=== PATIENT | male | born 1950 | race Caucasian/White ===

== ENCOUNTER 2019-04-28 08:37 | Emergency (ER) | payer MEDICARE, BC ==
[~2019-04-28] VITALS: Ht 185.4 cm; Wt 118.2 kg
[~2019-04-28 08:37] MED LIST: AMLO2.5T4 PO; CITA20TA28 PO; FLEC50TA PO; HYDR-4353 PO; METF500T PO; PANT40TA4 PO; PIOG45TA19 PO; RIVA20TA PO; TEMA15CA5 PO
[2019-04-28 09:16] LABS: BASOPHILS # (AUTO) 0.1 X10'3 (0-0.2); BASOPHILS % (AUTO) 0.8 % (0-1); EOSINOPHILS # (AUTO) 0.3 X10'3 (0-0.9); EOSINOPHILS % (AUTO) 2.8 % (0-6); HEMATOCRIT 44.8 % (42.0-52.0); HEMOGLOBIN 15.6 g/dl (14.0-17.9); LYMPHOCYTES # (AUTO) 2.8 X10'3 (1.1-4.8); LYMPHOCYTES % (AUTO) 27.6 % (21-51); MEAN CORPUSCULAR HEMOGLOBIN 29.8 PG (27.0-31.0); MEAN CORPUSCULAR HGB CONC 34.9 g/dL (33.0-36.5); MEAN CORPUSCULAR VOLUME 85.5 FL (78-98); MEAN PLATELET VOLUME 8.6 FL (7.4-10.4); MONOCYTES # (AUTO) 0.7 X10'3 (0-0.9); MONOCYTES % (AUTO) 7.3 % (2-12); NEUTROPHILS # (AUTO) 6.2 X10'3 (1.8-7.7); NEUTROPHILS % (AUTO) 61.5 % (42-75); PLATELET COUNT 219 X10'3 (140-440); RED BLOOD COUNT 5.23 X10'6 (4.70-6.10); RED CELL DISTRIBUTION WIDTH 13.5 % (11.5-14.5); WHITE BLOOD COUNT 10.1 X10'3 (4.5-11.0)
[2019-04-28 09:22] LABS: ALANINE AMINOTRANSFERASE 26 U/L (12-78); ALBUMIN 4.1 G/DL (3.4-5.0); ALBUMIN/GLOBULIN RATIO 1.1 (1.1-1.5); ALKALINE PHOSPHATASE 121 IU/L (46-116); ANION GAP 13 (8-16); BILIRUBIN,TOTAL 1.8 MG/DL (0.1-1.0); BLOOD UREA NITROGEN 22 MG/DL (7-18); BUN/CREATININE RATIO 13.8 (5.4-32.0); CALCIUM 9.8 MG/DL (8.5-10.1); CHLORIDE 96 MMOL/L (99-107); CREATININE 1.59 MG/DL (0.60-1.10); GLUCOSE 197 MG/DL (70-104); POTASSIUM 4.1 MMOL/L (3.5-5.1); SODIUM 131 MMOL/L (135-145); TOTAL CARBON DIOXIDE 22.2 MMOL/L (24-32); TOTAL PROTEIN 7.9 G/DL (6.4-8.2); eGFR 44 ML/MIN
[2019-04-28 09:25] LABS: PARTIAL THROMBOPLASTIN TIME 38 SECONDS (22-32)
[2019-04-28] MEDS: aspirin 81mg tab.chew PO ONE (09:41)
--- NOTE | 2019-04-28 09:41 | NUR ---
vascular in room ultrasounding left leg
--- NOTE | 2019-04-28 09:43 | NUR ---
PATIENT DENIES CHEST PAIN AT THIS TIME
[2019-04-28] MEDS: furosemide 10 MG/1 ML 10ml inj IV ONE (09:53)
[2019-04-28] MEDS: LORazepam 2 mg/ml vial IV ONE (10:38)
--- NOTE | 2019-04-28 10:51 | NUR ---
PER JULIANNE MILLER: AMBULATE WITHOUT OXYGEN PATIENT AMBULATED ABOUT 300 FEET RR EVEN UNLABORED SPO2 ABOVE 97% DURING WALK, PATIENT STATED THAT HE IS ALWAYS SOB AND HIS SOB WAS SLIGHTLY INCREASED DURING HIS WALK BUT NO ACCESORY MUSCLE USE, UNLABORED: HIGHEST RR 18
--- NOTE | 2019-04-28 10:58 | NUR ---
PATIENT DENIED CHEST PAIN DURING AMBUALTION: JULIANNE BORJA
[2019-04-28] MEDS: normal saline 1000ML IV soln IVB ONE ×2 (11:29→12:08)
--- NOTE | 2019-04-28 12:09 | NUR ---
PATIENT MAY HAVE BEEN DOUBLE DOSING HIS METFORMIN. HE STATED THAT HE RESUMED HIS METFORMIN AND HIS GLUCOPHAGE. JULIANNE MILLER DISCUSSED HIS LACTIC ACIDOSIS AND THAT THE PATIENT MUST STOP HIS METFORMIN
[2019-04-28 12:11] LABS: ASPARTATE AMINO TRANSFERASE 17 U/L (10-37)
[2019-04-28 13:10] VITALS: BP 131/64
[2019-04-28 13:41] LABS: URINE AMPHETAMINE SCREEN NEGATIVE (Neg); URINE BARBITUATE SCREEN NEGATIVE (Neg); URINE BENZODIAZEPINES SCREEN POSITIVE (Neg); URINE CANNABINOID SCREEN POSITIVE (Neg); URINE COCAINE SCREEN POSITIVE (Neg); URINE METHADONE SCREEN NEGATIVE (Neg); URINE OPIATE SCREEN POSITIVE (Neg); URINE PHENCYCLIDINE SCREEN NEGATIVE (Neg)
== END 2019-04-28 13:57 | disposition home or self-care (01) ==
LOC: ER 08:38
DX: E87.2 Acidosis (principal); T38.3X5A Adverse effect of insulin and oral hypoglycemic [antidiabetic] drugs, initial encounter; E86.0 Dehydration; E11.22 Type 2 diabetes mellitus with diabetic chronic kidney disease; N18.9 Chronic kidney disease, unspecified; I50.9 Heart failure, unspecified; F19.10 Other psychoactive substance abuse, uncomplicated; L53.8 Other specified erythematous conditions; I48.91 Unspecified atrial fibrillation; E11.9 Type 2 diabetes mellitus without complications; Z95.1 Presence of aortocoronary bypass graft; Z79.899 Other long term (current) drug therapy; Y92.9 Unspecified place or not applicable
CPT/HCPCS: 36415; 71045; 80053; 80305; 83605; 83880; 84484; 85025; 85379; 85610; 85730; 93005; 93971; 96361; 96374; 96375; 99284; J1940; J2060; J7030

== ENCOUNTER 2021-01-06 17:53 | Emergency (ER) | payer MEDICARE, BC ==
[~2021-01-06] VITALS: Ht 185.4 cm; Wt 122.7 kg
[~2021-01-06 17:53] MED LIST changes: +APIX5TAB3 PO; +ATOR40TA72 PO; -PANT40TA4 PO; +PANT40TA54 PO; -PIOG45TA19 PO; -RIVA20TA PO
[2021-01-06] MEDS ORDERED: normal saline 1000ML IV soln IV ONE (18:05)
[2021-01-06 18:44] LABS: BASOPHILS # (AUTO) 0.1 X10'3 (0-0.2); BASOPHILS % (AUTO) 1.3 % (0-1); EOSINOPHILS # (AUTO) 0.3 X10'3 (0-0.9); EOSINOPHILS % (AUTO) 5.1 % (0-6); HEMATOCRIT 39.7 % (42.0-52.0); HEMOGLOBIN 13.2 g/dl (14.0-17.9); LYMPHOCYTES # (AUTO) 1.8 X10'3 (1.1-4.8); LYMPHOCYTES % (AUTO) 30.2 % (21-51); MEAN CORPUSCULAR HEMOGLOBIN 27.9 PG (27.0-31.0); MEAN CORPUSCULAR HGB CONC 33.2 g/dL (33.0-36.5); MEAN CORPUSCULAR VOLUME 84.1 FL (78-98); MEAN PLATELET VOLUME 7.3 FL (7.4-10.4); MONOCYTES # (AUTO) 0.4 X10'3 (0-0.9); MONOCYTES % (AUTO) 6.2 % (2-12); NEUTROPHILS # (AUTO) 3.5 X10'3 (1.8-7.7); NEUTROPHILS % (AUTO) 57.2 % (42-75); PLATELET COUNT 263 X10'3 (140-440); RED BLOOD COUNT 4.72 X10'6 (4.70-6.10); RED CELL DISTRIBUTION WIDTH 16.5 % (11.5-14.5); WHITE BLOOD COUNT 6.1 X10'3 (4.5-11.0)
--- NOTE | 2021-01-06 18:54 | NUR ---
Pt resting in bed recieving IV fluids. No complaints at this time. Vitals taken
[2021-01-06 18:55] LABS: ALANINE AMINOTRANSFERASE 19 U/L (12-78); ALBUMIN 3.9 G/DL (3.4-5.0); ALBUMIN/GLOBULIN RATIO 0.9 (1.1-1.5); ALKALINE PHOSPHATASE 149 IU/L (46-116); ANION GAP 10 (8-16); ASPARTATE AMINO TRANSFERASE 13 U/L (10-37); BILIRUBIN,TOTAL 0.5 MG/DL (0.1-1.0); BLOOD UREA NITROGEN 15 MG/DL (7-18); BUN/CREATININE RATIO 12.5 (5.4-32.0); CALCIUM 9.2 MG/DL (8.5-10.1); CHLORIDE 100 MMOL/L (99-107); GLUCOSE 254 MG/DL (70-104); LIPASE < 50 U/L (73-393); POTASSIUM 4.5 MMOL/L (3.5-5.1); SODIUM 136 MMOL/L (135-145); TOTAL PROTEIN 8.2 G/DL (6.4-8.2); eGFR 60 ML/MIN
[2021-01-06] MEDS ORDERED: lactulose 20gm/30ml cup PO ONE (19:10)
[2021-01-06] MEDS ORDERED: magnesium citrate 296ml oral solution PO ONE (19:10)
[2021-01-06] MEDS ORDERED: iohexol 300mg/ml 100ml inj. ONE (19:11)
[2021-01-06] MEDS ORDERED: POLY17PO10 PO (22:05)
[2021-01-06 22:23] LABS: CLARITY,URINE CLEAR (Clear); COLOR,URINE YELLOW (Yellow); GLUCOSE, URINE 250 mg/dl (Neg); KETONES,URINE NEGATIVE (Neg); LEUKOCYTE ESTERASE ,URINE NEGATIVE (Neg); NITRITES, URINE NEGATIVE (Neg); OCCULT BLOOD,URINE NEGATIVE (Neg); PH,URINE 5.5 (4.8-8.0); PROTEIN,URINE NEGATIVE (Neg)
[2021-01-06 22:28] LABS: UA COLLECTION TYPE CLN CATCH MIDSTREAM
--- NOTE | 2021-01-06 22:52 | NUR ---
Pt had two bowel movements after enema, states relief. BM was firm and pt states hard to pass
[2021-01-06 23:19] VITALS: BP 125/60
== END 2021-01-06 23:20 | disposition home or self-care (01) ==
LOC: ER 17:54
DX: K59.00 Constipation, unspecified (principal); K80.80 Other cholelithiasis without obstruction; R10.30 Lower abdominal pain, unspecified; R53.1 Weakness; I48.91 Unspecified atrial fibrillation; E11.9 Type 2 diabetes mellitus without complications; Z98.890 Other specified postprocedural states; Z79.899 Other long term (current) drug therapy
CPT/HCPCS: 36415; 74177; 80053; 81003; 83605; 83690; 84145; 85025; 87040; 87077; 99285; J7030; Q9967; 96360; 96361

== ENCOUNTER 2021-07-01 10:40 | Inpatient (IN) | payer MEDICARE, BC ==
[2021-07-01] VITALS (9 sets, daily range): BP systolic 143–172; BP diastolic 68–102
[~2021-07-01] VITALS: Ht 185.4 cm; Wt 127.3 kg
[2021-07-01 11:30] LABS: BASOPHILS % (AUTO) 0.6 % (0-1); EOSINOPHILS # (AUTO) 0.3 X10'3 (0-0.9); EOSINOPHILS % (AUTO) 4.9 % (0-6); HEMATOCRIT 37.5 % (42.0-52.0); HEMOGLOBIN 12.6 g/dl (14.0-17.9); LYMPHOCYTES # (AUTO) 1.7 X10'3 (1.1-4.8); MEAN CORPUSCULAR HEMOGLOBIN 29.5 PG (27.0-31.0); MEAN CORPUSCULAR HGB CONC 33.6 g/dL (33.0-36.5); MEAN CORPUSCULAR VOLUME 87.7 FL (78-98); MEAN PLATELET VOLUME 7.3 FL (7.4-10.4); MONOCYTES # (AUTO) 0.5 X10'3 (0-0.9); MONOCYTES % (AUTO) 8.1 % (2-12); NEUTROPHILS # (AUTO) 4.1 X10'3 (1.8-7.7); NEUTROPHILS % (AUTO) 61.4 % (42-75); PLATELET COUNT 204 X10'3 (140-440); RED BLOOD COUNT 4.27 X10'6 (4.70-6.10); RED CELL DISTRIBUTION WIDTH 15.4 % (11.5-14.5); WHITE BLOOD COUNT 6.6 X10'3 (4.5-11.0)
[2021-07-01 11:49] LABS: ALANINE AMINOTRANSFERASE 30 U/L (12-78); ALBUMIN 3.3 G/DL (3.4-5.0); ALBUMIN/GLOBULIN RATIO 1.1 (1.1-1.5); ALKALINE PHOSPHATASE 100 IU/L (46-116); ANION GAP 9 (8-16); ASPARTATE AMINO TRANSFERASE 19 U/L (10-37); BILIRUBIN,TOTAL 0.7 MG/DL (0.1-1.0); BLOOD UREA NITROGEN 13 MG/DL (7-18); BUN/CREATININE RATIO 11.5 (5.4-32.0); CALCIUM 8.4 MG/DL (8.5-10.1); CHLORIDE 103 MMOL/L (99-107); CREATININE 1.13 MG/DL (0.60-1.10); GLUCOSE 180 MG/DL (70-104); POTASSIUM 4.6 MMOL/L (3.5-5.1); SODIUM 138 MMOL/L (135-145); TOTAL CARBON DIOXIDE 26.2 MMOL/L (24-32); TOTAL PROTEIN 6.4 G/DL (6.4-8.2); eGFR 64 ML/MIN
[2021-07-01] MEDS ORDERED: magnesium 4gm in 100ml NS 100 ML IV PRN (11:50)
[2021-07-01] MEDS ORDERED: acetaminophen 325mg tablet PO PRN (11:50)
[2021-07-01] MEDS ORDERED: magnesium Cl slow-release 64mg tablet PO PRN (11:50)
[2021-07-01] MEDS ORDERED: mag hydrox/Alum hydrox/simeth 30ml oral suspension PO PRN (11:50)
[2021-07-01] MEDS ORDERED: magnesium 2GM in 50ml NS 50 ML IV PRN (11:50)
[2021-07-01] MEDS ORDERED: magnesium hydroxide 30ml (MOM) UD suspension PO PRN (11:50)
[2021-07-01] MEDS ORDERED: ondansetron/PF 4mg/2ml inj IV PRN ×3 (11:50→19:30)
[2021-07-01] MEDS ORDERED: potassium Cl 40MEQ/1/2NS 520ml 520 ML IV PRN ×2 (11:50)
[2021-07-01] MEDS ORDERED: potassium Cl 20 mEq SR tablet PO PRN ×2 (11:50)
[2021-07-01] MEDS ORDERED: DEXT20TA6 PO (11:56)
[2021-07-01] MEDS ORDERED: FLEC100T35 PO ×2 (11:56→12:00)
[2021-07-01] MEDS ORDERED: AMLO5TAB16 PO (11:56)
--- NOTE | 2021-07-01 14:27 | NUR ---
RN CALLS PCU TO GIVE REPORT AND WAS TOLD THAT JEROD RUBIO WILL HAVE TO CALL BACK TO ER FOR REPORT BECAUSE HE IS CURRENTLY IN A PATIENTS ROOM
[2021-07-01] MEDS ORDERED: LIDOcaine 1% (10mg/ml)w/preservative injection 20ml MDV ONE (15:02)
[2021-07-01] MEDS ORDERED: iohexol 350 MG/ML 50ML vial IV ONE ×2 (15:02→16:23)
[2021-07-01] MEDS ORDERED: heparin 1,000unit/ml 10ml vial 10 ML ONE (15:02)
[2021-07-01] MEDS ORDERED: vancomycin 1,000mg inj ONE (15:02)
[2021-07-01] MEDS ORDERED: midazolam 1 mg/ML 2ml injection ONE ×7 (15:02→17:32)
[2021-07-01] MEDS ORDERED: fentaNYL/PF 50MCG/1 ML 2ML syringe ONE (15:02)
[2021-07-01] MEDS ORDERED: iohexol 350MG/ML 100ml bottle IV ONE (15:03)
[2021-07-01] MEDS ORDERED: ceFAZolin/D5W- 1GM premix 50 ML IV ONE (16:25)
[2021-07-01] MEDS ORDERED: vancomycin/NS 1 GM ADD-VANTAGE 250 ML X 1 DOSE IV ONE (16:35)
[2021-07-01] MEDS ORDERED: LIDOCAINE 2% w/EPI 1:100:000 30mL injection MDV**cath lab 1 only ONE (16:50)
[2021-07-01] MEDS ORDERED: HYDROmorphone 1 mg/ml syringe ONE ×2 (17:12→17:32)
[2021-07-01] MEDS ORDERED: HYDROcodone/acetaminophen 5mg/325mg tablet PO PRN (18:40)
[2021-07-01] MEDS ORDERED: HYDROcodone/acetaminophen 10/325mg tab PO PRN ×3 (18:40→19:35)
[2021-07-01] MEDS ORDERED: proCHLORperazine 10 MG/2 ml inj IV PRN ×2 (18:40→19:30)
--- NOTE | 2021-07-01 19:00 | NUR ---
Found patient standing at bedside, trying to void in the urinal. Pt was confused as to where he was and what had happened. He was put back in bed, and bandages were checked. Pt has to be reminded often not to use his left arm and to keep it in the sling. A hematoma developed and the pacemaker site. A weight was applied w/foam tape. Patient's groin site remained clean, dry and intact without evidence of a hematoma.
[2021-07-01] MEDS ORDERED: amiodarone/D5 360MG/200ML BAG 200 ML IV ONE (19:25)
[2021-07-01] MEDS ORDERED: OXAZEpam 15mg capsule PO PRN (19:30)
[2021-07-01] MEDS: K and/or MAG REPLACEMENT MC SCH (20:00)
[2021-07-01] MEDS ORDERED: pantoprazole 40mg Tablet.DR PO SCH (21:00)
[2021-07-01] MEDS ORDERED: atorvastatin 20mg tablet PO SCH (21:00)
[2021-07-01] MEDS ORDERED: citalopram 20mg tablet PO SCH (21:00)
[2021-07-01] MEDS ORDERED: flecainide 50mg tablet PO SCH (21:00)
[2021-07-01] MEDS ORDERED: temazepam 15mg capsule PO SCH (21:00)
[2021-07-01] MEDS: normal saline 1000ml 1,000 ML IV SCH (21:15)
[2021-07-01] MEDS: apixaban 5mg tablet PO SCH (21:28)
[2021-07-01] MEDS: docusate sod 100mg capsule PO SCH (21:28)
[2021-07-01] MEDS: amiodarone/D5 360MG/200ML BAG 200 ML IV SCH (21:30)
[2021-07-01] MEDS: HYDROcodone/acetaminophen 5mg/325mg tablet PO PRN (21:37)
[2021-07-02] VITALS (8 sets, daily range): BP systolic 128–177; BP diastolic 71–105
[2021-07-02] MEDS: HYDROcodone/acetaminophen 5mg/325mg tablet PO PRN (03:06)
[2021-07-02] MEDS: amiodarone/D5 360MG/200ML BAG 200 ML IV SCH ×2 (03:07→09:21)
[2021-07-02] MEDS: normal saline 1000ml 1,000 ML IV SCH ×3 (04:35→09:58)
[2021-07-02 06:07] LABS: BASOPHILS # (AUTO) 0.1 X10'3 (0-0.2); BASOPHILS % (AUTO) 0.6 % (0-1); EOSINOPHILS # (AUTO) 0.3 X10'3 (0-0.9); HEMATOCRIT 36.8 % (42.0-52.0); HEMOGLOBIN 12.5 g/dl (14.0-17.9); LYMPHOCYTES # (AUTO) 1.3 X10'3 (1.1-4.8); MEAN CORPUSCULAR HEMOGLOBIN 29.9 PG (27.0-31.0); MEAN CORPUSCULAR HGB CONC 33.9 g/dL (33.0-36.5); MEAN CORPUSCULAR VOLUME 88.2 FL (78-98); MEAN PLATELET VOLUME 7.9 FL (7.4-10.4); MONOCYTES # (AUTO) 0.6 X10'3 (0-0.9); MONOCYTES % (AUTO) 7.7 % (2-12); NEUTROPHILS # (AUTO) 5.9 X10'3 (1.8-7.7); NEUTROPHILS % (AUTO) 71.7 % (42-75); PLATELET COUNT 182 X10'3 (140-440); RED BLOOD COUNT 4.18 X10'6 (4.70-6.10); RED CELL DISTRIBUTION WIDTH 15.5 % (11.5-14.5); WHITE BLOOD COUNT 8.3 X10'3 (4.5-11.0)
[2021-07-02 06:09] LABS: ALBUMIN 3.1 G/DL (3.4-5.0); ANION GAP 7 (8-16); BLOOD UREA NITROGEN 13 MG/DL (7-18); BUN/CREATININE RATIO 12.9 (5.4-32.0); CALCIUM 8.8 MG/DL (8.5-10.1); CHLORIDE 106 MMOL/L (99-107); CREATININE 1.01 MG/DL (0.60-1.10); GLUCOSE 161 MG/DL (70-104); MAGNESIUM 1.5 MG/DL (1.5-2.4); POTASSIUM 4.8 MMOL/L (3.5-5.1); SODIUM 138 MMOL/L (135-145); TOTAL CARBON DIOXIDE 25.1 MMOL/L (24-32); eGFR 73 ML/MIN
--- NOTE | 2021-07-02 06:21 | NUR ---
Problems reprioritized. Patient bedside report given, questions answered & plan of care reviewed with JOANNE Jenkins and JOANNE Penny.
--- NOTE | 2021-07-02 06:30 | NUR ---
i non-admin a bunch of medications in the EMAR. They were not completed by NOC shift and i was not here during those times.
--- NOTE | 2021-07-02 06:40 | NUR ---
Patient in room PCU 3022. I have received report from JOANNE Lucero and had the opportunity to ask questions and assume patient care.
--- NOTE | 2021-07-02 06:48 | NUR ---
Patient in room PCU 3022. I have received report from JOANNE Lucero and had the opportunity to ask questions and assume patient care.
[2021-07-02] MEDS: K and/or MAG REPLACEMENT MC SCH (08:00)
[2021-07-02] MEDS ORDERED: dextroamphetamine/amphetamine 10mg tablet PO SCH (08:00)
[2021-07-02] MEDS ORDERED: flecainide 50mg tablet PO SCH (08:00)
[2021-07-02] MEDS ORDERED: amLODIPine 5mg tablet PO SCH (08:00)
[2021-07-02] MEDS: apixaban 5mg tablet PO SCH (08:34)
[2021-07-02] MEDS: docusate sod 100mg capsule PO SCH (08:34)
[2021-07-02] MEDS ORDERED: dextroamphetamine/amphetamine 5mg tablet PO SCH (09:28)
--- NOTE | 2021-07-02 12:15 | NUR ---
Paged ALMA Perez Joseph [phone] Can you call me please. Paul discharged pt and wants to know what meds to order? Thanks Alice [phone]
--- NOTE | 2021-07-02 12:16 | NUR ---
Natty Vogt, ALMA informed me she will talk to Dr Montoya and discuss discharge medications, she will get back to me.
[2021-07-02] MEDS ORDERED: AMIO200T61 PO (12:31)
--- NOTE | 2021-07-02 13:43 | NUR ---
pt stable for dc per md orders. all dc questions were reviewed and answered. follow up appt will be made by pt. PIV dc, cannula intact. tele monitor dc. belongings collected and sent with ptSiobhan hinojosa to [facility]. transported home by son.
--- NOTE | 2021-07-02 13:45 | NUR ---
Orientee documentation: I have reviewed and agree with all interventions, assessments performed and documented by JOANNE Penny.
--- NOTE | 2021-07-02 14:35 | NUR ---
Orientee Medication Administration: For this medication-pass time frame, all medication were reviewed, dispensed, administered and documented per hospital policy by JOANNE Penny.
== END 2021-07-02 13:45 | disposition home or self-care (01) | DRG 224 ==
LOC: ER 10:41 → ED HOLD 11:48 → PCU 3S 18:10
PROVIDERS: ADMIT Internal Medicine; ATTEND Internal Medicine
PROC: 4A023N7 Measurement of Cardiac Sampling and Pressure, Left Heart, Percutaneous Approach (ICD-10-PCS; principal; 2021-07-01)
PROC: 0JH608Z Insertion of Defibrillator Generator into Chest Subcutaneous Tissue and Fascia, Open Approach (ICD-10-PCS; 2021-07-01)
PROC: 02HK3KZ Insertion of Defibrillator Lead into Right Ventricle, Percutaneous Approach (ICD-10-PCS; 2021-07-01)
PROC: B2111ZZ Fluoroscopy of Multiple Coronary Arteries using Low Osmolar Contrast (ICD-10-PCS; 2021-07-01)
PROC: B2151ZZ Fluoroscopy of Left Heart using Low Osmolar Contrast (ICD-10-PCS; 2021-07-01)
PROC: B2131ZZ Fluoroscopy of Multiple Coronary Artery Bypass Grafts using Low Osmolar Contrast (ICD-10-PCS; 2021-07-01)
DX: I47.2 Ventricular tachycardia (principal); I21.A1 Myocardial infarction type 2; I48.91 Unspecified atrial fibrillation; E11.9 Type 2 diabetes mellitus without complications; E78.00 Pure hypercholesterolemia, unspecified; E78.5 Hyperlipidemia, unspecified; F32.9 Major depressive disorder, single episode, unspecified; I10 Essential (primary) hypertension; K21.9 Gastro-esophageal reflux disease without esophagitis; Z79.01 Long term (current) use of anticoagulants; Z79.84 Long term (current) use of oral hypoglycemic drugs; Z86.73 Personal history of transient ischemic attack (TIA), and cerebral infarction without residual deficits; Z95.1 Presence of aortocoronary bypass graft; Z79.899 Other long term (current) drug therapy
CPT/HCPCS: 33249; 36415; 71045; 80048; 80053; 83735; 84484; 85025; 87081; 93306; 93459; 99152; 99153; 99285; A4565; A4620; A6258; C1722; C1760; C1769; C1777; C1894; G0378; J0690; J1170; J1644; J2001; J2250; J3010; J3370; J7030; Q9967

== ENCOUNTER 2021-07-11 17:16 | Emergency (ER) | payer MEDICARE, BC ==
[~2021-07-11] VITALS: Ht 185.4 cm; Wt 122.7 kg
[~2021-07-11 17:16] MED LIST changes: +AMIO200T61 PO; -AMLO2.5T4 PO; +AMLO5TAB16 PO; +DEXT20TA6 PO; -FLEC50TA PO; -METF500T PO
[2021-07-11 17:32] VITALS: BP 143/81
--- NOTE | 2021-07-11 17:32 | NUR ---
PT REFUSED TO GET INTO GOWN, STATED "I DONT WANT TO BE HERE THAT LONG"
--- NOTE | 2021-07-11 17:43 | NUR ---
PT RIPPED ALL LEADS OFF AND WANTS TO LEAVE. DR ARELLANO NOTIFIED. PT SON AT BEDSIDE NOW STATED HE WILL CALM DAD DOWN.
[2021-07-11] MEDS ORDERED: LORazepam 1 MG tablet PO ONE (18:25)
[2021-07-11 19:06] LABS: D-DIMER 0.57 MG/L FEU (0-0.50)
[2021-07-11 19:09] LABS: ALANINE AMINOTRANSFERASE 19 U/L (12-78); ALBUMIN 3.8 G/DL (3.4-5.0); ALBUMIN/GLOBULIN RATIO 1.1 (1.1-1.5); ALKALINE PHOSPHATASE 120 IU/L (46-116); ANION GAP 6 (8-16); ASPARTATE AMINO TRANSFERASE 14 U/L (10-37); BILIRUBIN,TOTAL 0.7 MG/DL (0.1-1.0); BLOOD UREA NITROGEN 16 MG/DL (7-18); BUN/CREATININE RATIO 14.8 (5.4-32.0); CALCIUM 8.7 MG/DL (8.5-10.1); CHLORIDE 107 MMOL/L (99-107); CREATININE 1.08 MG/DL (0.60-1.10); GLUCOSE 147 MG/DL (70-104); POTASSIUM 4.5 MMOL/L (3.5-5.1); SODIUM 141 MMOL/L (135-145); TOTAL CARBON DIOXIDE 28.4 MMOL/L (24-32); TOTAL PROTEIN 7.2 G/DL (6.4-8.2); eGFR 68 ML/MIN
[2021-07-11 19:12] LABS: BASOPHILS # (AUTO) 0.1 X10'3 (0-0.2); BASOPHILS % (AUTO) 1.1 % (0-1); EOSINOPHILS # (AUTO) 0.2 X10'3 (0-0.9); EOSINOPHILS % (AUTO) 3.3 % (0-6); HEMATOCRIT 35.9 % (42.0-52.0); HEMOGLOBIN 12.4 g/dl (14.0-17.9); LYMPHOCYTES # (AUTO) 1.9 X10'3 (1.1-4.8); LYMPHOCYTES % (AUTO) 32.2 % (21-51); MEAN CORPUSCULAR HEMOGLOBIN 29.9 PG (27.0-31.0); MEAN CORPUSCULAR HGB CONC 34.6 g/dL (33.0-36.5); MEAN CORPUSCULAR VOLUME 86.5 FL (78-98); MEAN PLATELET VOLUME 7.7 FL (7.4-10.4); MONOCYTES # (AUTO) 0.4 X10'3 (0-0.9); NEUTROPHILS # (AUTO) 3.4 X10'3 (1.8-7.7); NEUTROPHILS % (AUTO) 56.4 % (42-75); PLATELET COUNT 194 X10'3 (140-440); RED BLOOD COUNT 4.15 X10'6 (4.70-6.10); RED CELL DISTRIBUTION WIDTH 14.9 % (11.5-14.5)
--- NOTE | 2021-07-11 19:12 | NUR ---
medtr[employer] pacemaker interrogated, data sent, awating report or call.
[2021-07-11 19:16] LABS: TROPONIN I < 0.04 NG/ML (0.0-0.05)
--- NOTE | 2021-07-11 19:37 | NUR ---
patient son came to me, " my dad just walked out". Explained to son that there is nothing I can do to keep him here. Obtained ama form and went to parking lot were patient did sign form. patient dc AMA home with son main.
== END 2021-07-11 19:40 | disposition left against medical advice (07) ==
LOC: ER 17:16
DX: R55 Syncope and collapse (principal); I48.91 Unspecified atrial fibrillation; E78.00 Pure hypercholesterolemia, unspecified; I10 Essential (primary) hypertension; E11.9 Type 2 diabetes mellitus without complications; Z86.73 Personal history of transient ischemic attack (TIA), and cerebral infarction without residual deficits; Z98.890 Other specified postprocedural states; Z72.89 Other problems related to lifestyle; Z79.899 Other long term (current) drug therapy
CPT/HCPCS: 36415; 71045; 80053; 83880; 84484; 85025; 85379; 93005; 99285

== ENCOUNTER 2021-11-10 15:42 | Emergency (ER) | payer MEDICARE, BC ==
[~2021-11-10] VITALS: Ht 185.4 cm; Wt 109.1 kg
[2021-11-10 15:46] VITALS: BP 147/127
[2021-11-10 16:25] LABS: ALANINE AMINOTRANSFERASE 195 U/L (12-78); ALBUMIN 3.3 G/DL (3.4-5.0); ALBUMIN/GLOBULIN RATIO 0.8 (1.1-1.5); ALKALINE PHOSPHATASE 104 IU/L (46-116); ANION GAP 9 (8-16); ASPARTATE AMINO TRANSFERASE 125 U/L (10-37); BLOOD UREA NITROGEN 12 MG/DL (7-18); BUN/CREATININE RATIO 11.2 (5.4-32.0); CALCIUM 8.6 MG/DL (8.5-10.1); CHLORIDE 93 MMOL/L (99-107); CREATININE 1.07 MG/DL (0.60-1.10); GLUCOSE 216 MG/DL (70-104); SODIUM 129 MMOL/L (135-145); TOTAL CARBON DIOXIDE 26.8 MMOL/L (24-32); TOTAL PROTEIN 7.4 G/DL (6.4-8.2); eGFR 68 ML/MIN
[2021-11-10 16:27] LABS: POTASSIUM 4.3 MMOL/L (3.5-5.1)
[2021-11-10 16:31] LABS: MAGNESIUM 1.2 MG/DL (1.5-2.4)
[2021-11-10] MEDS ORDERED: CASIRIVIMAB/IMDEVIMAB inject. 10 ML in normal saline 100ml IV soln 100 ML IV ONE (17:30)
[2021-11-10] MEDS ORDERED: dexamethasone sod phosphate 10mg/ml inj IV STA (19:08)
== END 2021-11-10 19:09 | disposition left against medical advice (07) ==
LOC: ER 15:43
DX: U07.1 COVID-19 (principal); R07.89 Other chest pain; R06.02 Shortness of breath; R05.9 Cough, unspecified; I48.91 Unspecified atrial fibrillation; E78.00 Pure hypercholesterolemia, unspecified; I10 Essential (primary) hypertension; E11.9 Type 2 diabetes mellitus without complications; Z86.73 Personal history of transient ischemic attack (TIA), and cerebral infarction without residual deficits; Z98.890 Other specified postprocedural states; Z72.89 Other problems related to lifestyle; Z79.899 Other long term (current) drug therapy
CPT/HCPCS: 36415; 71045; 80053; 83735; 83880; 84145; 84484; 85610; 87635; 93005; 99285; C9803

== ENCOUNTER 2022-03-14 07:22 | Day surgery (SDC) | payer MEDICARE, BC ==
[~2022-03-14] VITALS: Ht 185.4 cm; Wt 118.4 kg
[2022-03-14 07:40] VITALS: BP 130/72
[2022-03-14] MEDS ORDERED: MIDAZolam 1mg/ml 10ml vial IV ONE (07:45)
[2022-03-14] MEDS ORDERED: normal saline 1000ml 1,000 ML IV SCH (07:45)
[2022-03-14] MEDS ORDERED: fentaNYL/PF 50MCG/1 ML 2ML syringe IV ONE (07:45)
--- NOTE | 2022-03-14 07:55 | NUR ---
Patient arrived to unit. Patient asking about breathing test. Spoke with Leonora KENNEDY and patient is to have PFT performed prior to cardioversion. Patient taken down to RT.
[2022-03-14] MEDS ORDERED: LOP25T PO (07:59)
[2022-03-14] MEDS ORDERED: AMIT-189 PO (07:59)
[2022-03-14] MEDS ORDERED: AMIO100T4 PO (07:59)
== END 2022-03-14 10:00 | disposition home or self-care (01) ==
LOC: SSTAY O 07:22
PROVIDERS: ATTEND Internal Medicine Cardiovascular Disease
DX: R06.02 Shortness of breath (principal); Z53.8 Procedure and treatment not carried out for other reasons; I47.2 Ventricular tachycardia; I25.10 Atherosclerotic heart disease of native coronary artery without angina pectoris; E11.9 Type 2 diabetes mellitus without complications; I10 Essential (primary) hypertension; K21.9 Gastro-esophageal reflux disease without esophagitis; Z95.1 Presence of aortocoronary bypass graft; Z95.810 Presence of automatic (implantable) cardiac defibrillator; Z98.890 Other specified postprocedural states; Z79.84 Long term (current) use of oral hypoglycemic drugs; Z79.899 Other long term (current) drug therapy; Z82.49 Family history of ischemic heart disease and other diseases of the circulatory system
CPT/HCPCS: 93005; 94010; 94727; 94729

== ENCOUNTER 2022-08-13 12:37 | Outpatient (CLI) | payer MEDICARE, BC ==
[~2022-08-13 12:37] MED LIST changes: +AMIO100T4 PO; -AMIO200T61 PO; +AMIT-189 PO; -DEXT20TA6 PO; +LOP25T PO
== END 2022-08-13 23:59 | disposition home or self-care (01) ==
LOC: RAD 12:37
PROVIDERS: ATTEND Psychiatry & Neurology Neurology
DX: M47.817 Spondylosis without myelopathy or radiculopathy, lumbosacral region (principal); M48.07 Spinal stenosis, lumbosacral region; M51.27 Other intervertebral disc displacement, lumbosacral region; M51.46 Schmorl's nodes, lumbar region; M25.78 Osteophyte, vertebrae; M47.812 Spondylosis without myelopathy or radiculopathy, cervical region; M48.02 Spinal stenosis, cervical region; M50.223 Other cervical disc displacement at C6-C7 level; I67.82 Cerebral ischemia; R20.2 Paresthesia of skin; R27.8 Other lack of coordination; Z74.09 Other reduced mobility; U09.9 Post COVID-19 condition, unspecified; R41.3 Other amnesia
CPT/HCPCS: 70551; 72141; 72148

== ENCOUNTER 2023-07-19 15:04 | Emergency (ER) | payer MEDICARE, BC ==
[~2023-07-19] VITALS: Ht 185.4 cm; Wt 280.0 kg
[~2023-07-19 15:04] MED LIST changes: -AMIT-189 PO; +AMIT50TA15 PO
[2023-07-19 15:08] VITALS: TEMP 97.9
--- NOTE | 2023-07-19 15:20 | NUR ---
PT GETTING EKG AT THIS TIME
--- NOTE | 2023-07-19 15:26 | NUR ---
ACCUCK RESULT FOR THIS RN 328
[2023-07-19 15:50] LABS: BASOPHILS # (AUTO) 0.1 X10'3 (0-0.2); BASOPHILS % (AUTO) 1.2 % (0-1); EOSINOPHILS # (AUTO) 0.3 X10'3 (0-0.9); EOSINOPHILS % (AUTO) 4.5 % (0-6); HEMATOCRIT 43.1 % (42.0-52.0); HEMOGLOBIN 14.5 g/dl (14.0-17.9); LYMPHOCYTES # (AUTO) 1.4 X10'3 (1.1-4.8); LYMPHOCYTES % (AUTO) 23.6 % (21-51); MEAN CORPUSCULAR HGB CONC 33.6 g/dL (33.0-36.5); MEAN CORPUSCULAR VOLUME 86.3 FL (78-98); MEAN PLATELET VOLUME 8.3 FL (7.4-10.4); MONOCYTES # (AUTO) 0.4 X10'3 (0-0.9); MONOCYTES % (AUTO) 7.1 % (2-12); NEUTROPHILS # (AUTO) 3.8 X10'3 (1.8-7.7); NEUTROPHILS % (AUTO) 63.6 % (42-75); PLATELET COUNT 186 X10'3 (140-440); RED CELL DISTRIBUTION WIDTH 15.1 % (11.5-14.5); WHITE BLOOD COUNT 5.9 X10'3 (4.5-11.0)
--- NOTE | 2023-07-19 15:51 | NUR ---
PT HAS UPPER AND LOWER DENTURES. DENTURES REMOVED AND PLACED IN A CUP OF WATER.
[2023-07-19 15:57] LABS: ALANINE AMINOTRANSFERASE 23 U/L (12-78); ALBUMIN 3.3 G/DL (3.4-5.0); ALBUMIN/GLOBULIN RATIO 0.9 (1.1-1.5); ALKALINE PHOSPHATASE 121 IU/L (46-116); ANION GAP 8 (8-16); ASPARTATE AMINO TRANSFERASE 22 U/L (10-37); BILIRUBIN,TOTAL 0.9 MG/DL (0.1-1.0); BLOOD UREA NITROGEN 12 MG/DL (7-18); BUN/CREATININE RATIO 9.7 (10.0-20.0); CALCIUM 9.2 MG/DL (8.5-10.1); CHLORIDE 99 MMOL/L (99-107); CREATININE 1.24 MG/DL (0.60-1.10); GLUCOSE 348 MG/DL (70-104); POTASSIUM 4.5 MMOL/L (3.5-5.1); SODIUM 132 MMOL/L (135-145); TOTAL CARBON DIOXIDE 25.1 MMOL/L (24-32); eCRCL 61 ML/MIN; eGFR 57 ML/MIN
[2023-07-19 16:04] LABS: PRO BRAIN NATRIURETIC PEPTIDE 313 PG/ML (0-125)
[2023-07-19] MEDS ORDERED: normal saline 1000ml 1,000 ML IV ONE (16:05)
--- NOTE | 2023-07-19 17:16 | NUR ---
REPEAT EKG WAS DONE AND PT HAVING PM INTEROGATED AT THIS TIME.
--- NOTE | 2023-07-19 17:46 | NUR ---
ACCUCK RESULT 281. RN NOTIFIED [facility] WHITAKER. PER CORONA VAZQUEZ FLUIDS INFUSING
[2023-07-19 18:05] LABS: BILIRUBIN,URINE NEGATIVE (Neg); CLARITY,URINE CLEAR (Clear); COLOR,URINE YELLOW (Yellow); GLUCOSE, URINE >=1000 mg/dl (Neg); KETONES,URINE NEGATIVE (Neg); LEUKOCYTE ESTERASE ,URINE NEGATIVE (Neg); NITRITES, URINE NEGATIVE (Neg); OCCULT BLOOD,URINE NEGATIVE (Neg); PH,URINE 5.5 (4.8-8.0); PROTEIN,URINE NEGATIVE (Neg); UA COLLECTION TYPE CLN CATCH MIDSTREAM
[2023-07-19 18:20] LABS: SQUAMOUS EPITHELIAL CELL,UR NONE SEEN /LPF (FEW)
[2023-07-19 18:21] LABS: BACTERIA,URINE FEW /HPF (Neg); RBC,URINE 0-2 /HPF (0-2); SPERM FEW /HPF (NEGATIVE); WBC,URINE 0-4 /HPF (0-4)
[2023-07-19 19:00] VITALS: BP 146/99; PULSE 80; RESP 18
[2023-07-19 19:31] VITALS: O2SAT 97
== END 2023-07-19 20:00 | disposition home or self-care (01) ==
LOC: ER 15:05
DX: E11.65 Type 2 diabetes mellitus with hyperglycemia (principal); E86.0 Dehydration; R53.1 Weakness; E78.00 Pure hypercholesterolemia, unspecified; I10 Essential (primary) hypertension; Z79.899 Other long term (current) drug therapy
CPT/HCPCS: 36415; 71045; 80053; 81001; 82948; 83880; 84484; 85025; 93005; 99285; J7030